=== PATIENT | female | born 1965 | race Caucasian/White ===

== ENCOUNTER 2016-12-13 19:07 | Emergency (ER) | payer OTHER ==
[~2016-12-13] VITALS: Ht 162.6 cm; Wt 64.5 kg
[2016-12-13 19:20] VITALS: Ht 162.6 cm; Wt 64.5 kg
--- NOTE | 2016-12-13 19:32 | EN ---
Date/Time of Note Date/Time of Note DATE: 12/13/16 TIME: 19:29 ER Progress Note 51 year old female presents to ED for nausea, vomiting, headache and unable to tolerate PO fluids since yesterday. Patient states she has vomited and had loose stools many times today. No black or tarry stools. No bloody or bilious emesis. Had tactile fevers at home. Patient is having intermittent heart palpitations. No chest pain, shortness of breath or difficulty breathing. Patient states she has not urinated today. Patient did not take any medications at home. ARMANDO HAND NP December 13, 2016 19:32
[2016-12-13] MEDS ORDERED: ONDANSETRON (ODT) 4 MG TAB ODT STA (19:50)
[2016-12-13] MEDS ORDERED: ONDA4TAB14 PO (19:51)
[2016-12-13] MEDS ORDERED: IBUP-1542 PO (20:09)
--- NOTE | 2016-12-13 21:53 | ERD ---
ER Documentation Chief Complaint Date/Time DATE: 12/13/16 TIME: 21:51 Chief Complaint nausae, vomiting, headache, back pain HPI Patient is a 51-year-old female with a heart murmur who presents with multiple complaints. She has headache, sweating, and subjective fever. She also had vomiting and diarrhea and can keep anything down. She said the symptoms started last night. She has had no treatment as of yet. She has no abdominal pain currently. She did not call her primary doctor as of yet. Her primary doctor is Dr. Rivera. Upon review of old medical records this is the patient's first visit to the emergency department. ROS All systems reviewed and are negative except as per history of present illness. Medications Home Meds Active Scripts Ibuprofen* (Motrin*) 600 Mg Tab, 600 MG PO Q6H Y for PAIN AND OR ELEVATED TEMP, #30 TAB Prov:JANETH WOOTEN MD 12/13/16 Ondansetron (Ondansetron Odt) 4 Mg Tab.rapdis, 4 MG PO Q6H Y for NAUSEA AND/OR VOMITING, #10 TAB Prov:JANETH WOOTEN MD 12/13/16 Allergies Allergies: Coded Allergies: No Known Allergy (Unverified , 12/13/16) PMhx/Soc Medical and Surgical Hx: pt denies Surgical Hx History of Surgery: No Anesthesia Reaction: No Hx Neurological Disorder: No Hx Respiratory Disorders: No Hx Cardiac Disorders: Yes (Heart murmur per pt) Hx Psychiatric Problems: No Hx Miscellaneous Medical Probl: No Hx Alcohol Use: No Hx Substance Use: No Hx Tobacco Use: No Smoking Status: Never smoker FmHx Family History: diabetes Physical Exam Vitals Vital Signs Date Time Temp Pulse Resp B/P Pulse Ox O2 Delivery O2 Flow Rate FiO2 12/13/16 19:20 97.8 115 20 108/67 99 Physical Exam Const: No acute distress Head: Atraumatic Eyes: Normal Conjunctiva ENT: Normal External Ears, Nose and Mouth. Neck: Full range of motion..~ No meningismus. Resp: Clear to auscultation bilaterally Cardio: Regular rate and rhythm, no murmurs Abd: Soft, non tender, non distended. Normal bowel sounds Skin: No petechiae or rashes Back: No midline or flank tenderness Ext: No cyanosis, or edema Neur: Awake and alert Psych: Normal Mood and Affect Results 24 hrs Current Medications Medications (Trade) Dose Ordered Sig/Jaz Route PRN Reason Start Time Stop Time Status Last Admin Dose Admin Ondansetron HCl (Zofran Odt) 4 mg ONCE STAT ODT 12/13/16 19:50 12/13/16 19:51 DC 12/13/16 20:06 Procedures/MDM Patient is a 51-year-old female who presents with vomiting and diarrhea. She has headache as well. At this point I doubt appendicitis, cholecystitis, pancreatitis, or bowel obstruction. I doubt other serious etiology such as heart attack or sepsis. I believe outpatient management is appropriate but she will need close follow-up with a primary doctor within 24 hours. She can return sooner for any worsening symptoms. The patient understands the plan is okay for discharge at this time. Departure Diagnosis: Primary Impression: Vomiting and diarrhea Condition: Fair Patient Instructions: Self-Care for Vomiting and Diarrhea Additional Instructions: Llame al doctor MAANA y sebas yoshi JERRY PARA DENTRO DE 1-2 HINOJOSA.Dgale a la secretaria que nosotros le instruimos hacer esta jerry.Avise o llame si rodriguez condicin se empeora antes de la jerry. Regresa aqui si peor o no mejor. JANETH WOOTEN MD December 13, 2016 21:53
== END 2016-12-13 20:12 | disposition home or self-care (01) ==
LOC: FTE 19:07
DX: R11.10 Vomiting, unspecified (principal); R19.7 Diarrhea, unspecified
CPT/HCPCS: 99283